=== PATIENT | female | born 1990 | race Caucasian/White ===

== ENCOUNTER 2017-09-28 13:46 | Emergency (ER) | payer SELFPAY ==
[2017-09-28 13:55] VITALS: BP 155/95; BMI 20.3
--- NOTE | 2017-09-28 15:38 | DR.GENAD ---
HPI - PCP Primary Care Physician: NFD - Complaint/Symptoms Chief Complaint Doctors Comments: Upper and lower exts paresthesia of sudden onset while picking up toys in her son's bedroom. These symptoms have resolved as of time of her being seen here. She volunteered hx. of unorthodox diet. Chief Complaint:: EMS OUT TO PT WITH NUMBNESS TO HER FACE AND RIGHT AND LEFT ARMS, PT C/O GETTING DIZZY AROUND 12PM WHILE CLEANING (picking up clutter in child's room) KIDS ROOM SHE FELT LIKE IT WAS GETTING CLOUDY AND HER HANDS AND FACE AND ARMS AND LEGS WENT NUMB SO I WENT TO MY FATHER IN LAWS HOUSE B/C I KNEW I COULD NOT COME TO THE ER MYSELF. - Nurses notes reviewed Nurses Notes Review: Yes - Source History Provided: Patient - Mode of Arrival Mode of Arrival: EMS - Timing Onset of Chief Complaint: 09/28/17 Came on: Suddenly PMH - PMH Past Medical History: Yes Past Medical History: Anxiety Past Medical History Comment: MANIC DEPRESSION. Past Surgical History: No - Family History History of Family Medical Conditions: No - Social History Does patient currently use any type of tobacco product: No Have you used tobacco products in the last 12 months: No Type of Tobacco Use: None Does any household member use tobacco: No Alcohol Use: None Do you use any recreational Drugs:: No Lives With: Family Lives Where: Home - infectious screening In the last 2 months have you had wt loss of >10#?: NO Have you had fever, night sweats or hemotysis?: No Have you traveled outside the country in the last 6 months?: No Isolation: Standard ROS - Review of Systems Constitutional: No Symptoms Reported Eyes: No Symptoms Reported ENTM: No Symptoms Reported Respiratoy: No Symptoms Reported Cardiovascular: No Symptoms Reported Gastrointestinal/Abdominal: No Symptoms Reported Genitourinary: No Symptoms Reported Neurological: Paresthesia (upper and lower exts.), Tingling (upper and lower exts.) Musculoskeletal: No Symptoms Reported Integumentary: No Symptoms Reported Hematologic/Lymphatic: No Symptoms Reported Endocrine: No Symptoms Reported Psychiatric: No Symptoms Reported PE - Vital Signs Vitals: Temperature 98.0 F Pulse Rate 124 Respiratory Rate 18 Blood Pressure 155/95 O2 Sat by Pulse Oximetry 100 - General Limitations: No Limitations General Appearance: Alert, In No Apparent Distress - Head Head Exam: Normal Inspection - Eyes Eye exam: Normal Appearance - ENT ENT Exam: Normal Exam - Neck Neck Exam: Normal Inspection - Chest Chest Inspection: Normal Inspection, Symmetric Chest Wall Rise - Respiratory Respiratory Exam: Normal Lung Sounds Bilat - Cardiovascular Cardiovascular Exam: Regular Rate, Normal Rhythm, +S1, +S2 - Abdominal Exam Abdominal Exam: Normal Inspection, Normal Bowel Sounds, Soft - Extremities Extremities Exam: Normal Inspection - Back Back Exam: Normal Inspection - Neurologic Neurological Exam: Alert, Oriented X3 - Psychiatric Psychiatric Exam: Normal Affect, Normal Mood - Skin Skin Exam: Warm, Dry, Intact, Normal Color Course - Reevaluation 1st: Resolved - Education/Counseling Education/Counseling: Patient, Family, Counseling Educated On: Treatment, Diagnosis, Prognosis, Needs for Follow Up ROR - Labs Reviewed Result Diagrams: 09/28/17 15:39 Laboratory: Sodium 138 mmol/L (136-145) 09/28/17 15:39 Corrected Sodium TNP 09/28/17 15:39 Potassium 3.7 mmol/L (3.5-5.1) 09/28/17 15:39 Chloride 102 mmol/L (98-107) 09/28/17 15:39 Carbon Dioxide 27.1 mmol/L (21-32) 09/28/17 15:39 BUN 16 mg/dL (7-18) 09/28/17 15:39 Creatinine 0.77 mg/dL (0.55-1.02) 09/28/17 15:39 Est GFR (MDRD) Af Amer > 60 (>60) 09/28/17 15:39 Est GFR (MDRD) Non-Af > 60 (>60) 09/28/17 15:39 Glucose 90 mg/dL (65-99) 09/28/17 15:39 Calcium 9.4 mg/dL (8.5-10.1) 09/28/17 15:39 Corrected Calcium TNP 09/28/17 15:39 Magnesium 1.9 mg/dL (1.7-2.9) 09/28/17 15:39 Total Bilirubin 0.80 mg/dL (0.2-1.0) 09/28/17 15:39 AST 14 Units/L (15-37) L 09/28/17 15:39 ALT 15 Units/L (12-78) 09/28/17 15:39 Alkaline Phosphatase 86 Units/L (46-116) 09/28/17 15:39 Total Protein 8.1 g/dL (6.4-8.2) 09/28/17 15:39 Albumin 4.2 g/dL (3.4-5.0) 09/28/17 15:39 Globulin 3.9 g/dL (2.5-4.5) 09/28/17 15:39 Albumin/Globulin Ratio 1.1 Ratio (1.1-2.1) 09/28/17 15:39 - Diagnosis Discharge Problem: Paresthesia and pain of extremity, Anxiety - Discharge Plan Disposition: HOME, SELF-CARE Condition: Stable - Follow ups/Referrals Follow ups/Referrals: NFD,None [Primary Care Provider] - 3 days - Instructions
[2017-09-28 15:57] LABS: ALANINE AMINOTRANSFERASE 15 Units/L (12-78); ALBUMIN 4.2 g/dL (3.4-5.0); ALKALINE PHOSPHATASE 86 Units/L (46-116); ASPARTATE AMINO TRANSFERASE 14 Units/L (15-37); BLOOD UREA NITROGEN 16 mg/dL (7-18); CALCIUM 9.4 mg/dL (8.5-10.1); CARBON DIOXIDE 27.1 mmol/L (21-32); CHLORIDE 102 mmol/L (98-107); CREATININE 0.77 mg/dL (0.55-1.02); MAGNESIUM 1.9 mg/dL (1.7-2.9); SODIUM 138 mmol/L (136-145); TOTAL PROTEIN 8.1 g/dL (6.4-8.2); eGFR BLACK RACES > 60 (>60); eGFR NON BLACK RACES > 60 (>60)
== END 2017-09-28 17:10 | disposition home or self-care (01) ==
LOC: ER 14:06
DX: F41.8 Other specified anxiety disorders (principal); R20.0 Anesthesia of skin; M79.609 Pain in unspecified limb
CPT/HCPCS: 36415; 80053; 83735; 99282